=== PATIENT | male | born 1955 | race Caucasian/White ===

== ENCOUNTER 2018-11-22 19:24 | Emergency (ER) | payer OTHER ==
[2018-11-22 20:29] VITALS: PULSE 66; BMI 24.2
[2018-11-22 20:54] VITALS: BP 139/84; TEMP 97.1
--- NOTE | 2018-11-22 21:12 | PDOC ---
Attending Attestation - [facility] HPI: 11/22/18 22:10 Patient is a 3 year old male with a significant past medical history of HTN, HLD who presents to the ED with complaints of vomiting that occurred just prior to the ED arrival. Patient reports eating dinner when he began to experienced an episode of vomiting before falling over. He currently has no complaints while in the ED but states he has been increasingly stressed due to his son being in a coma after a traumatic event occured. Patient states he only at soup and red wine at dinner and did not ingest anything out of his normal. He reports wanting to leave and states that he will see his primary care doctor tomorrow morning. Denies chest pain, Sob. Denies nausea, vomiting. Denies contact with sick individuals, out of state travelling. Denies dysuria, hematuria, Denies any other symptoms. Allergies: None Social history: No smoking. Social alcohol use. No illicit drugs. Surgical history: None PMD: Dr. Edmund avila - Physicial Exam PE: 11/22/18 22:10 Constitutional: Awake, alert, oriented. No acute distress. Head: Normocephalic. Atraumatic Eyes: PERRL. EOMI. Conjunctivae are not pale. ENT: Mucous membranes are moist and intact. Posterior pharynx without exudate or erythema. Uvula midline. Neck: Supple. Full ROM. No lymphadenopathy. Cardiovascular: Regular rate. Regular rhythm. S1, S2 regular. Distal pulses are 2+ and symmetric. Pulmonary/Chest: No evidence of respiratory distress. Clear to auscultation bilaterally No wheezing, rales or rhonchi. Abdominal: Soft and nondistended. There is no tenderness. No rebound, guarding or rigidity. No organomegaly. No palpable masses. Good bowel sounds. Back: No CVA tenderness. Musculoskeletal: No edema. No cyanosis. No clubbing. Full range of motion in all extremities. No Calf tenderness. Radial/pedal pulses are intact and 2+ bilaterally Skin: Skin is warm and dry. No petechiae. No purpura. Neurological: Alert and oriented to person, place, and time. Cranial nerves II -XII are grossly intact. Normal speech. Strength is grossly symmetric. No sensory deficits. Psychiatric: Good eye contact. Normal interaction, affect and behavior. <James Medina - Last Filed: 11/22/18 22:10> - Resident Resident Name: Kamran Hunter - ED Attending Attestation I have performed the following: I have examined & evaluated the patient, The case was reviewed & discussed with the resident, I agree w/resident's findings & plan, Exceptions are as noted - Medical Decision Making 11/22/18 21:12 I, Dr. Ramila Almaraz, DO, attest that this document has been prepared under my direction and personally reviewed by me in its entirety. I further attest, that it accurately reflects all work, treatment, procedures and medical decision -making performed by me. 11/22/18 22:12 a/p: 63yo male with n/v after eating dinner tonight -denies cp/sob -denies abd pain -states he has been stressed because of his son who is in critical care at [facility] -pt drinking OJ and feels better -states he does not want lab work -agreeable to ekg 11/22/18 22:17 ekg shows t wave inversions- discussed with the patient who states he will follow up with the PMD tomorrow denies cp pt was dc by the resident without labs, i called the patient to discuss the EKG states he does not want to come back to the ED for lab work. Discussed that he will follow up with his PMD tomorrow. Denies n/v. Denies cp. Discussed in detail the importance of following up for the abnl ekg pt understands risks of abnl ekg and risk of not returning for labs states he doesn't want to come back for labs, but will see his doc tomorrow. <Ramila Almaraz - Last Filed: 11/22/18 22:19> Heart Score/ECG Review - ECG Intrepretation Comment:: 11/22/18 22:19 sinus at 60, T wave inversions iferior leads which are abnl, lvh, abnl ekg called pt with ekg results pt understands abnl ekg <Ramila Almaraz - Last Filed: 11/22/18 22:19>
--- NOTE | 2018-11-22 22:02 | PDOC ---
History of Present Illness - General Chief Complaint: Nausea/Vomiting Stated Complaint: VOMITING Time Seen by Provider: 11/22/18 20:23 History Source: Patient, Transportation Dispatch Manager Used (Pt is [place] speaking. [employer] telephone trim mechanic utilized. ) Exam Limitations: Language Barrier - History of Present Illness Initial Comments: HPI: 63 y/o male BIBEMS to [facility] ER complaining of single episode of nausea and the sensation that he was going to fall over. Pt states he is extremely emotional as his son was involved in a traumatic accident and is in critical condition at [facility]. He spent all day at the hospital and left to eat dinner at a restaurant. He had a small amount of soup and a little bit of red wine. He then felt ill and vomited one time. No blood, only food. EMS was summoned by another patron. At time of interview, the pt stated he felt tired but no longer felt nauseous. Further states he believes the episode is related to his concern for his son. He requested to have his blood pressure checked and he would follow up with his PCP tomorrow. Medical Hx: - HTN - HLD Unable to recall the names of his medications but states he takes them everyday without fail Past History - Suicide/Smoking/Psychosocial Hx Smoking History: Never smoked Have you smoked in the past 12 months: No Information on smoking cessation initiated: No Hx Alcohol Use: No Drug/Substance Use Hx: No Review of Systems - Review of Systems Able to Perform ROS?: Yes Comments:: In addition to that documented in the HPI above, the additional ROS was obtained : Constitutional: Denies fevers or chills Head: Denies vision changes ENMT: Denies sore throat CV: Denies chest pain Resp: Denies SOB GI: Endorses vomiting. Denies diarrhea : Denies painful urination MSK: Denies recent trauma Skin: Denies new rashes Neuro: Denies new numbness or tingling or weakness Endocrine: Denies polyuria Heme: Denies bleeding or bruising *Physical Exam - Vital Signs Last Vital Signs Temp Pulse Resp BP Pulse Ox 97.1 F L 66 20 139/84 96 11/22/18 20:53 11/22/18 20:53 11/22/18 20:53 11/22/18 20:53 11/22/18 20:53 - Physical Exam Comments: Constitutional: Well-developed, well-nourished male in no acute distress or obvious discomfort. Found standing next to [facility] bed. Alert and oriented x4. Answered all questions appropriately and completely. Speech was non -labored, non-pressured. Head: Normocephalic. No obvious external signs of trauma. Eyes: Sclerae white. Ears: Hearing grossly intact. Nose: No nasal discharge. Neck: Supple, trachea is midline. Cardiovascular / Chest: Regular rate and regular rhythm. No murmur, rubs, clicks, or gallops. Peripheral pulses: radial pulses full. Respiratory: Breathing unlabored. Equal chest rise and fall. Clear to auscultation bilaterally. No stridor, no wheezing, no rhonchi. Gastrointestinal: abdomen is soft, non-tender, non-distended. Neuro: Alert and oriented. Moving all four extremities spontaneously. Skin: Warm, dry, and intact. Psych: Affect: appropriate. Mood: normal. Moderate Sedation - Procedure Monitoring Vital Signs: Procedure Monitoring Vital Signs Temperature 97.1 F L 11/22/18 20:53 Pulse Rate 66 11/22/18 20:53 Respiratory Rate 20 11/22/18 20:53 Blood Pressure 139/84 11/22/18 20:53 O2 Sat by Pulse Oximetry (%) 96 11/22/18 20:53 Medical Decision Making - Medical Decision Making *Reviewed vital signs, nursing notes, and prior visit documentation (if available). 63 y/o male presenting after single episode of vomiting after an emotionally charged day. Afebrile. Vitals unremarkable for hypotension or tachycardia. Physical exam bening. Will obtain EKG. Low suspicion for ACS. Suspect likely emotional fatigue given circumstances and general appearance in the department. EKG revealed sinus rhythm at a ventricular rate of 60 bpm. Normal axis. Normal intervals. T wave inversions in III and aVF. No ST stemement elevations or depressions. No prior EKGs available for comparison. Pt erroneously discharged by resident provider. ED Attending called pts cell phone and discussed the T wave inversions. Pt declined to return for further evaluation stating he will follow up with his doctor tomorrow. *DC/Admit/Observation/Transfer Diagnosis at time of Disposition: Vomiting Qualifiers: Vomiting type: unspecified Vomiting Intractability: non-intractable Nausea presence: unspecified Qualified Code(s): R11.10 - Vomiting, unspecified - Discharge Dispostion Disposition: HOME Condition at time of disposition: Fair - Referrals Referrals: Edmund Woodward [Primary Care Provider] - - Patient Instructions Printed Discharge Instructions: DI for Vomiting -- Adult Additional Instructions: Voc foi visto hoje depois de um episdio de vmito. Seu exame fsico e sinais vitais so normais hoje. Voc foi capaz de beber gua ashley dificuldade. Voc no queria mais avaliao. Por favor, siga com seu mdico de cuidados primrios nos prximos dois a trs pop. Voc precisar ligar para marcar nael consulta. V para o departamento de emergncia mais prximo se a sua condio piorar ou voc sentir que precisa de nael avaliao de emergncia adicional. Estamos desejando ao seu nat nael rpida recuperao! You were seen today after an episode of vomiting. Your physical exam and vital signs are normal today. You were able to drink water without difficulty. You did not want further evaluation. Please follow up with your primary care doctor within the next two to three days. You will need to call to make an appointment. Go to the nearest emergency department if your condition worsens or you feel like you need additional emergency evaluation. We are wishing your son a speedy recovery! Print Language: [place] - Post Discharge Activity
--- NOTE | 2018-11-23 10:56 | EKG ---
Test Reason : Blood Pressure : / mmHG Vent. Rate : 060 BPM Atrial Rate : 060 BPM P-R Int : 162 ms QRS Dur : 106 ms QT Int : 446 ms P-R-T Axes : 047 051 005 degrees QTc Int : 446 ms NORMAL SINUS RHYTHM VOLTAGE CRITERIA FOR LEFT VENTRICULAR HYPERTROPHY T WAVE ABNORMALITY, CONSIDER INFERIOR ISCHEMIA ABNORMAL ECG WHEN COMPARED WITH ECG OF 10-FEB-1998 20:32, ST LESS ELEVATED IN ANTERIOR LEADS T WAVE INVERSION NOW EVIDENT IN INFERIOR LEADS NONSPECIFIC T WAVE ABNORMALITY NOW EVIDENT IN LATERAL LEADS Confirmed by BARBIE RAYMOND MD ([id number]) on 11/23/2018 10:56:40 AM Referred By: Confirmed By:BARBIE RAYMOND MD
== END 2018-11-22 22:05 | disposition home or self-care (01) ==
LOC: JER 19:24
DX: R11.10 Vomiting, unspecified (principal); R94.31 Abnormal electrocardiogram [ECG] [EKG]
CPT/HCPCS: 93005; 93010; 99282-25